=== PATIENT | male | born 1960 | race Caucasian/White ===

== ENCOUNTER → 2016-11-21 | Outpatient (CLI) | payer OTHER ==
[~2016-11-21] MED LIST: ASPI32ECTA PO; ATOR1TAB19 PO; CLOP75TA2 PO; LISI20TA PO; LISI40TAB PO; TYLE325T5 PO
--- NOTE | 2016-11-21 15:15 | REP ---
Right foot four views: There are no comparisons. Mineralization and joint spaces are normal. There is no fracture or dislocation. There are no unusual calcifications or foreign bodies. There is a density in the distal tibia of uncertain significance as it is not optimally demonstrated on these views of the foot, possibly an enchondroma or bone infarct. Impression: Negative right foot. Unusual density in the distal tibia not optimally demonstrated. Signed by Ralph Chung MD 11/21/2016 03:07 P
== END ==
LOC: M WUC 14:39
PROVIDERS: ATTEND Physician Assistant
DX: M79.671 Pain in right foot (principal)

== ENCOUNTER 2018-02-22 12:08 | Emergency (ER) | payer OTHER ==
[2018-02-22] MEDS: NS 1,000 ML IV (12:54)
[2018-02-22] MEDS: LORazepam 2 MG/ML VIAL (J2060) IV (12:54)
[2018-02-22] MEDS: ASPIRIN 81 MG CHEW TABLET PO (12:54)
[2018-02-22] MEDS: NITROGLYCERIN 0.4 MG SUBL TABLET SL (12:55)
[2018-02-22 13:10] LABS: PROTHROMBIN TIME 13.3 SECONDS (12.1-14.4)
[2018-02-22 13:30] LABS: ALBUMIN 4.2 GM/DL (3.2-5.2); ALKALINE PHOSPHATASE 86 U/L (45-117); ALT/SGPT 26 U/L (12-78); ANION GAP 11 MEQ/L (8-16); AST/SGOT 18 U/L (7-37); BILIRUBIN,DIRECT 0.3 MG/DL (0.0-0.2); BLOOD UREA NITROGEN 7 MG/DL (7-18); CARBON DIOXIDE LEVEL 23 MEQ/L (21-32); CHLORIDE LEVEL 97 MEQ/L (98-107); CPK CREATINE PHOSPHOKINASE 109 U/L (39-308); CREATININE FOR GFR 0.89 MG/DL (0.70-1.30); GLOMERULAR FILTRATION RATE > 60.0 (>56); GLUCOSE, FASTING 110 MG/DL (70-100); MB/CK RELATIVE INDEX 2.94 (< OR =4); NT-PRO BNP 74 PG/ML (<125); POTASSIUM SERUM 3.7 MEQ/L (3.5-5.1); SODIUM LEVEL 131 MEQ/L (136-145); TOTAL PROTEIN 7.3 GM/DL (6.4-8.2); TROPONIN I < 0.02 NG/ML (< 0.10)
[2018-02-22 13:35] LABS: ALBUMIN/GLOBULIN RATIO 1.35 (1.00-1.93)
[2018-02-22 14:17] LABS: BASO # 0.1 10^3/uL (0.0-0.2); BASO % 0.7 % (0.0-1.0); EOS # 0.4 10^3/uL (0.0-0.50); HEMATOCRIT 43.8 % (42.0-52.0); HEMOGLOBIN 15.9 g/dl (13.5-17.5); IMMATURE GRANULOCYTE % 0.4 % (0-3.0); LYMPH # 2.1 10^3/uL (1.5-4.5); LYMPH % 22.8 % (24.0-44.0); MEAN CORPUSCULAR HEMOGLOBIN 32.6 pg (27.0-33.0); MEAN CORPUSCULAR HGB CONC 36.3 g/dl (32.0-36.5); MEAN CORPUSCULAR VOLUME 89.9 fl (80.0-96.0); MONO # 1.1 10^3/uL (0.0-0.8); MONO % 11.7 % (0.0-5.0); NEUTROPHILS # 5.6 10^3/uL (1.8-7.7); NEUTROPHILS % 60.4 % (36.0-66.0); PLATELET COUNT, AUTOMATED 251 10^3/uL (150-450); RED BLOOD COUNT 4.87 10^6/uL (4.30-6.10); RED CELL DISTRIBUTION WIDTH 12.4 % (11.5-14.5); WHITE BLOOD COUNT 9.2 10^3/uL (4.0-10.0)
== END 2018-02-22 15:10 | disposition home or self-care (01) ==
LOC: M ED 12:08
DX: I10 Essential (primary) hypertension (principal); F41.9 Anxiety disorder, unspecified; E78.5 Hyperlipidemia, unspecified; Z86.73 Personal history of transient ischemic attack (TIA), and cerebral infarction without residual deficits; Z79.899 Other long term (current) drug therapy; Z79.82 Long term (current) use of aspirin; Z79.02 Long term (current) use of antithrombotics/antiplatelets
CPT/HCPCS: J2060

== ENCOUNTER 2018-07-19 10:52 | Emergency (ER) | payer OTHER ==
[~2018-07-19] VITALS: Ht 172.7 cm; Wt 86.4 kg
[~2018-07-19 10:52] MED LIST changes: +ASPI325T25 PO; -ASPI32ECTA PO
[2018-07-19] MEDS ORDERED: METO1TAB32 (11:09)
--- NOTE | 2018-07-19 11:51 | REP ---
RIGHT ANKLE, FOUR VIEWS: HISTORY: Pain. There is no acute fracture or dislocation. The joint space is normal in appearance. A small ossified density is present in the distal tibia. IMPRESSION: There is no acute fracture or dislocation. Electronically Signed by Crispin Fuentes MD 07/19/2018 11:54 A
--- NOTE | 2018-07-19 12:04 | REP ---
Duplex extremity venous ultrasound: Right lower extremity. History: Right lower extremity swelling and pain. Question DVT. Findings: The deep veins are anechoic and fully compressible from the groin to the popliteal fossa in the right lower extremity. Color flow imaging is homogeneous. Spectral Doppler interrogation demonstrates intact respiratory variation in flow and normal manual augmentation of flow. There is no evidence of deep vein thrombosis. Impression: Negative right lower extremity duplex venous ultrasound. No evidence of deep vein thrombosis. Electronically Signed by Griffin Norman MD 07/19/2018 11:55 A
[2018-07-19 12:21] VITALS: BP 137/83
== END 2018-07-19 12:45 | disposition home or self-care (01) ==
LOC: M ED 10:52
DX: S93.401A Sprain of unspecified ligament of right ankle, initial encounter (principal); I10 Essential (primary) hypertension; E78.2 Mixed hyperlipidemia; Z87.891 Personal history of nicotine dependence

== ENCOUNTER → 2020-05-11 | Outpatient (CLI) | payer OTHER ==
[~2020-05-11] MED LIST changes: +ASPI-255 PO; -ASPI325T25 PO; -LISI20TA PO; +LISI20TA35 PO; +LISI40TA52 PO; -LISI40TAB PO; +METO1TAB32
== END ==
LOC: M LABSMTC 12:00
PROVIDERS: ATTEND Anesthesiology
DX: Z01.812 Encounter for preprocedural laboratory examination (principal); Z20.828 Contact with and (suspected) exposure to other viral communicable diseases

== ENCOUNTER → 2020-06-10 | Outpatient (CLI) | payer OTHER | LOC: M LABSMTC 13:00 | PROVIDERS: ATTEND Anesthesiology | DX: Z01.812 Encounter for preprocedural laboratory examination (principal); Z20.828 Contact with and (suspected) exposure to other viral communicable diseases ==

== ENCOUNTER 2020-06-12 09:03 | Day surgery (SDC) | payer OTHER ==
[~2020-06-12] VITALS: Ht 175.3 cm; Wt 88.9 kg
[~2020-06-12 09:03] MED LIST changes: +LIDOCAINE 2% 100MG/5ML SDV (FOR ANES.) As Ordered ONE; +NS 1,000 ML IV ONE; +propofoL 200 MG/20 ML VIAL As Ordered ONE
[2020-06-12] MEDS ORDERED: propofoL 200 MG/20 ML VIAL As Ordered ONE (10:54)
[2020-06-12] MEDS ORDERED: LIDOCAINE 2% 100MG/5ML SDV (FOR ANES.) As Ordered ONE (10:54)
--- NOTE | 2020-06-12 11:12 | ROOR ---
Patient Name: Ralph Valencia Procedure Date: 06/12/2020 10:26 AM Date of : 1960 Age: 59 Room: [facility] Gender: Male Note Status: Finalized Procedure: Colonoscopy Indications: High risk colon cancer surveillance: Personal history of colonic polyps Providers: Rodolfo Naranjo Jr, MD Referring MD: ANGELICA FLOWER MD Requesting Provider: Medicines: Propofol per Anesthesia Complications: No immediate complications. Procedure: Pre-Anesthesia Assessment: - Prior to the procedure, a History and Physical was performed, and patient medications and allergies were reviewed. The patient is competent. The risks and benefits of the procedure and the sedation options and risks were discussed with the patient. All questions were answered and informed consent was obtained. Patient identification and proposed procedure were verified by the physician and the nurse in the pre-procedure area and in the procedure room. Mental Status Examination: alert and oriented. Airway Examination: normal oropharyngeal airway and neck mobility. Respiratory Examination: clear to auscultation. CV Examination: normal. ASA Grade Assessment: II - A patient with mild systemic disease. After reviewing the risks and benefits, the patient was deemed in satisfactory condition to undergo the procedure. The anesthesia plan was to use moderate sedation / analgesia (conscious sedation). Immediately prior to administration of medications, the patient was re-assessed for adequacy to receive sedatives. The heart rate, respiratory rate, oxygen saturations, blood pressure, adequacy of pulmonary ventilation, and response to care were monitored throughout the procedure. The physical status of the patient was re-assessed after the procedure. The Colonoscope was introduced through the anus and advanced to the cecum, identified by appendiceal orifice and ileocecal valve. The colonoscopy was performed without difficulty. The patient tolerated the procedure well. The quality of the bowel preparation was adequate. Findings: The rectum, recto-sigmoid colon, descending colon, ascending colon, cecum, appendiceal orifice and ileocecal valve appeared normal. A few medium-mouthed diverticula were found in the sigmoid colon. A small polyp was found in the transverse colon. The polyp was removed with a cold snare. Resection and retrieval were complete. To close a defect after polypectomy, one hemostatic clip was successfully placed. There was no bleeding at the end of the procedure. The ileocecal valve was severely lipomatous. Impression: - The rectum, recto-sigmoid colon, descending colon, ascending colon, cecum, appendiceal orifice and ileocecal valve are normal. - Diverticulosis in the sigmoid colon. - One small polyp in the transverse colon, removed with a cold snare. Resected and retrieved. Clip was placed. Recommendation: - Discharge patient to home (ambulatory). - Repeat colonoscopy in 5-10 years for surveillance based on pathology results. Procedure Code(s): --- Professional --- 32237, Colonoscopy, flexible; with removal of tumor(s), polyp(s), or other lesion(s) by snare technique Diagnosis Code(s): --- Professional --- Z86.010, Personal history of colonic polyps K63.5, Polyp of colon K57.30, Diverticulosis of large intestine without perforation or abscess without bleeding CPT copyright 2019 [employer]. All rights reserved. The codes documented in this report are preliminary and upon phonograph cartridge assembler review may be revised to meet current compliance requirements. Rodolfo Naranjo MD Rodolfo Naranjo Jr, MD 06/12/2020 11:12:25 AM Electronically signed by Rodolfo Naranjo Jr, MD Number of Addenda: 0 Note Initiated On: 06/12/2020 10:26 AM Estimated Blood Loss: Estimated blood loss: none.
[2020-06-12 11:51] VITALS: BP 135/83
== END 2020-06-12 11:54 | disposition home or self-care (01) ==
LOC: M OPP 09:03
PROVIDERS: ATTEND Surgery
DX: Z12.11 Encounter for screening for malignant neoplasm of colon (principal); Z86.010 Personal history of colon polyps; K63.5 Polyp of colon; K57.30 Diverticulosis of large intestine without perforation or abscess without bleeding

== ENCOUNTER → 2021-09-11 | Outpatient (CLI) | payer OTHER ==
[~2021-09-11] MED LIST changes: -LIDOCAINE 2% 100MG/5ML SDV (FOR ANES.) As Ordered ONE; -NS 1,000 ML IV ONE; -propofoL 200 MG/20 ML VIAL As Ordered ONE
[2021-09-11 16:22] LABS: BLOOD UREA NITROGEN 12 MG/DL (7-18); CREATININE FOR GFR 0.96 MG/DL (0.70-1.30); GLOMERULAR FILTRATION RATE > 60.0 (>49)
== END ==
LOC: M WUC 13:53
PROVIDERS: ATTEND Psychiatry & Neurology Neurology
DX: I10 Essential (primary) hypertension (principal)

== ENCOUNTER → 2023-01-21 | Outpatient (CLI) | payer OTHER ==
[2023-01-21 13:32] LABS: BASO # 0.1 10^3/uL (0.0-0.2); BASO % 0.7 % (0.0-1.0); EOS # 0.3 10^3/uL (0.0-0.5); EOS % 2.7 % (0.0-3.0); HEMATOCRIT 48.4 % (42.0-52.0); HEMOGLOBIN 16.7 g/dl (13.5-17.5); LYMPH # 1.7 10^3/uL (1.5-5.0); LYMPH % 16.7 % (24.0-44.0); MEAN CORPUSCULAR HEMOGLOBIN 31.9 pg (27.0-33.0); MEAN CORPUSCULAR HGB CONC 34.5 g/dl (32.0-36.5); MEAN CORPUSCULAR VOLUME 92.4 fl (80.0-96.0); MONO # 1.2 10^3/uL (0.0-0.8); MONO % 11.4 % (2.0-8.0); NEUTROPHILS # 6.9 10^3/uL (1.5-8.5); NEUTROPHILS % 68.1 % (36.0-66.0); PLATELET COUNT, AUTOMATED 261 10^3/uL (150-450); RED BLOOD COUNT 5.24 10^6/uL (4.30-6.10); WHITE BLOOD COUNT 10.2 10^3/uL (4.0-10.0)
[2023-01-21 13:53] LABS: ERYTHROCYTE SEDIMENTATION RATE 26 mm/hr (0-20)
== END ==
LOC: M PLALAB 11:57
PROVIDERS: ATTEND Physician Assistant
DX: M25.561 Pain in right knee (principal)

== ENCOUNTER → 2023-05-14 | Outpatient (CLI) | payer OTHER ==
[2023-05-14 13:37] LABS: BASO # 0.1 10^3/uL (0.0-0.2); BASO % 0.8 % (0.0-1.0); EOS # 0.4 10^3/uL (0.0-0.5); EOS % 2.9 % (0.0-3.0); HEMATOCRIT 48.7 % (42.0-52.0); LYMPH # 1.8 10^3/uL (1.5-5.0); MEAN CORPUSCULAR HEMOGLOBIN 32.9 pg (27.0-33.0); MEAN CORPUSCULAR HGB CONC 34.9 g/dl (32.0-36.5); MEAN CORPUSCULAR VOLUME 94.2 fl (80.0-96.0); MONO # 1.3 10^3/uL (0.0-0.8); MONO % 10.4 % (2.0-8.0); NEUTROPHILS # 8.4 10^3/uL (1.5-8.5); NEUTROPHILS % 70.1 % (36.0-66.0); PLATELET COUNT, AUTOMATED 294 10^3/uL (150-450); RED BLOOD COUNT 5.17 10^6/uL (4.30-6.10)
[2023-05-14 13:48] LABS: ERYTHROCYTE SEDIMENTATION RATE 19 mm/hr (0-20)
[2023-05-14 13:57] LABS: RHEUMATOID FACTOR QUANT < 3.5 IU/ML (<14)
[2023-05-15 13:07] LABS: ANTINUCLEAR ANTIBODIES DIRECT Negative (Negative)
== END ==
LOC: M PLALAB 11:13
PROVIDERS: ATTEND Physician Assistant Surgical
DX: M17.12 Unilateral primary osteoarthritis, left knee (principal)

== ENCOUNTER → 2023-06-17 | Outpatient (CLI) | payer OTHER | LOC: M PLARAD 13:13 | PROVIDERS: ATTEND Physician Assistant Surgical | DX: M17.12 Unilateral primary osteoarthritis, left knee (principal); M25.462 Effusion, left knee; S83.242A Other tear of medial meniscus, current injury, left knee, initial encounter; X58.XXXA Exposure to other specified factors, initial encounter; Y92.9 Unspecified place or not applicable; Y93.9 Activity, unspecified; Y99.9 Unspecified external cause status; M65.862 Other synovitis and tenosynovitis, left lower leg ==

== ENCOUNTER 2024-03-11 12:58 | Observation (INO) | payer OTHER ==
[~2024-03-11] VITALS: Ht 177.8 cm; Wt 85.0 kg
[~2024-03-11 12:58] MED LIST changes: +ASPIRIN 81MG CHEW TABLET PO SCH; +ATORVASTATIN 20 MG TAB PO SCH; +CLOPIDOGREL 75 MG TAB PO SCH; -METO1TAB32; +METO1TAB32 PO
[2024-03-11] MEDS ORDERED: ASPI81CH33 PO (13:11)
[2024-03-11] MEDS ORDERED: ISOVUE-370 76% 100ML VIAL As Ordered ONE (13:16)
[2024-03-11 13:46] LABS: BASO # 0.1 10^3/uL (0.0-0.2); EOS # 0.4 10^3/uL (0.0-0.5); EOS % 4.2 % (0.0-3.0); HEMATOCRIT 47.8 % (42.0-52.0); HEMOGLOBIN 17.2 g/dl (13.5-17.5); LYMPH % 19.6 % (24.0-44.0); MEAN CORPUSCULAR VOLUME 91.6 fl (80.0-96.0); MONO # 0.9 10^3/uL (0.0-0.8); MONO % 9.3 % (2.0-8.0); NEUTROPHILS # 6.6 10^3/uL (1.5-8.5); NEUTROPHILS % 65.4 % (36.0-66.0); PLATELET COUNT, AUTOMATED 289 10^3/uL (150-450); RED BLOOD COUNT 5.22 10^6/uL (4.30-6.10); WHITE BLOOD COUNT 10.1 10^3/uL (4.0-10.0)
[2024-03-11] MEDS ORDERED: ATOR1TAB21 PO (13:46)
[2024-03-11] MEDS ORDERED: ZEST1TAB2 PO (13:46)
[2024-03-11] MEDS ORDERED: HOME MED LIST COMPLETE! XX SCH (13:50)
[2024-03-11 13:58] LABS: INR 0.99; PARTIAL THROMBOPLASTIN TIME 25.4 SECONDS (24.8-34.2); PROTHROMBIN TIME 12.8 SECONDS (12.5-14.5)
[2024-03-11 15:19] LABS: BLOOD UREA NITROGEN 9 MG/DL (9-23); CALCIUM LEVEL 9.5 MG/DL (8.3-10.6); CARBON DIOXIDE LEVEL 23 MMOL/L (20-31); CHLORIDE LEVEL 103 MMOL/L (98-107); CREATININE FOR GFR 0.83 MG/DL (0.70-1.30); GLOMERULAR FILTRATION RATE > 60.0 (>49); GLUCOSE, FASTING 99 MG/DL (74-106); POTASSIUM SERUM 4.1 MMOL/L (3.5-5.1); SODIUM LEVEL 134 MMOL/L (136-145)
[2024-03-11] MEDS ORDERED: ACETAMINOPHEN TAB 650MG DOSE (2X325MG) PO PRN (16:50)
[2024-03-11 17:22] LABS: CHOLESTEROL LEVEL 146 MG/DL (<200); TRIGLYCERIDES LEVEL 54 MG/DL (<150)
[2024-03-11 17:25] LABS: THYROID STIMULATING HORMONE 1.438 uIU/ML (0.55-4.78)
[2024-03-11 17:34] LABS: HEMOGLOBIN A1c 5.6 % (4.0-6.0)
[2024-03-11 17:48] LABS: VITAMIN B12 LEVEL 327 PG/ML (211-911)
[2024-03-11 18:16] LABS: CHOLESTEROL RISK RATIO 1.99 (<5); HDL CHOLESTEROL 73.3 MG/DL (>40); LDL CHOLESTEROL 61.9 MG/DL (<100); NON-HDL-C 72.7 MG/DL
[2024-03-11 22:00] VITALS: BP 140/80; TEMP 97.5; O2SAT 96
[2024-03-11 23:53] VITALS: BP 122/70; TEMP 98; O2SAT 96
[2024-03-12] VITALS (9 sets, daily range): BP systolic 117–128; BP diastolic 72–75; TEMP 97.6; O2SAT 92–96
[2024-03-12 07:16] LABS: BASO # 0.1 10^3/uL (0.0-0.2); BASO % 1.1 % (0.0-1.0); EOS # 0.5 10^3/uL (0.0-0.5); EOS % 5.2 % (0.0-3.0); HEMATOCRIT 43.4 % (42.0-52.0); HEMOGLOBIN 15.6 g/dl (13.5-17.5); LYMPH # 1.7 10^3/uL (1.5-5.0); MEAN CORPUSCULAR HEMOGLOBIN 33.4 pg (27.0-33.0); MEAN CORPUSCULAR HGB CONC 35.9 g/dl (32.0-36.5); MEAN CORPUSCULAR VOLUME 92.9 fl (80.0-96.0); MONO % 11.1 % (2.0-8.0); NEUTROPHILS # 5.6 10^3/uL (1.5-8.5); NEUTROPHILS % 62.9 % (36.0-66.0); PLATELET COUNT, AUTOMATED 254 10^3/uL (150-450); RED BLOOD COUNT 4.67 10^6/uL (4.30-6.10); WHITE BLOOD COUNT 8.9 10^3/uL (4.0-10.0)
[2024-03-12 07:48] LABS: ALBUMIN 3.5 G/DL (3.2-5.2); ALKALINE PHOSPHATASE 105 U/L (46-116); ALT/SGPT 18 U/L (7.0-40); AST/SGOT 14 U/L (<34); BILIRUBIN,TOTAL 0.9 MG/DL (0.3-1.2); BLOOD UREA NITROGEN 12 MG/DL (9-23); CALCIUM LEVEL 9.1 MG/DL (8.3-10.6); CARBON DIOXIDE LEVEL 26 MMOL/L (20-31); CHLORIDE LEVEL 104 MMOL/L (98-107); GLOMERULAR FILTRATION RATE > 60.0 (>49); GLUCOSE, FASTING 98 MG/DL (74-106); MAGNESIUM LEVEL 2.2 MG/DL (1.8-2.4); POTASSIUM SERUM 4.1 MMOL/L (3.5-5.1); SODIUM LEVEL 135 MMOL/L (136-145); TOTAL PROTEIN 6.4 G/DL (5.7-8.2)
[2024-03-12] MEDS: ENOXAPARIN 40MG/0.4ML SYRINGE (J1650 PER 10MG) SC SCH (08:26)
[2024-03-12] MEDS: CLOPIDOGREL 75 MG TAB PO SCH (08:26)
[2024-03-12] MEDS: ASPIRIN 81MG CHEW TABLET PO SCH (08:26)
[2024-03-12] MEDS: ATORVASTATIN 20 MG TAB PO SCH (08:26)
[2024-03-12] MEDS ORDERED: LIPI80TA PO (11:55)
[2024-03-12 12:13] LABS: CHOLESTEROL LEVEL 135 MG/DL (<200); CHOLESTEROL RISK RATIO 1.99 (<5); HDL CHOLESTEROL 67.7 MG/DL (>40); LDL CHOLESTEROL 54.5 MG/DL (<100); NON-HDL-C 67.3 MG/DL; TRIGLYCERIDES LEVEL 64 MG/DL (<150)
== END 2024-03-12 13:16 | disposition home or self-care (01) ==
LOC: M ED 12:58 → M ED INP 12:59 → M PCU 21:55
PROVIDERS: ADMIT Student in an Organized Health Care Education/Training Program; ATTEND Student in an Organized Health Care Education/Training Program
DX: G45.9 Transient cerebral ischemic attack, unspecified (principal); I72.0 Aneurysm of carotid artery; I69.320 Aphasia following cerebral infarction; I10 Essential (primary) hypertension; Z87.891 Personal history of nicotine dependence; Z79.82 Long term (current) use of aspirin; Z79.02 Long term (current) use of antithrombotics/antiplatelets; Z79.899 Other long term (current) drug therapy
CPT/HCPCS: 36415; 70450; 70496; 70498; 70544; 70551; 71045; 80048; 80053; 80061; 82607; 82746; 83036; 83735; 84207; 84425; 84443; 85025; 85610; 85730; 93005; 93041; 93306; 94760; 96372; 97161; 99285; J1650; Q9967

== ENCOUNTER → 2024-05-26 | Outpatient (CLI) | payer OTHER ==
[~2024-05-26] MED LIST changes: +ASPI81CH33 PO; -ASPIRIN 81MG CHEW TABLET PO SCH; +ATOR-398 PO; +ATOR1TAB21 PO; -ATORVASTATIN 20 MG TAB PO SCH; -CLOPIDOGREL 75 MG TAB PO SCH; +ZEST1TAB2 PO
== END ==
LOC: M RAD 08:56
PROVIDERS: ATTEND Orthopaedic Surgery
DX: M54.12 Radiculopathy, cervical region (principal); M47.892 Other spondylosis, cervical region

== ENCOUNTER → 2024-08-24 | Outpatient (REF) | payer OTHER ==
[2024-08-24 16:17] LABS: APPEARANCE, URINE CLEAR (CLEAR); BACTERIA, URINE AUTO NEGATIVE (NEGATIVE); BILIRUBIN, URINE AUTO NEGATIVE (NEGATIVE); BLOOD, URINE BLOOD 1+ (NEGATIVE); COLOR, URINE YELLOW (YELLOW); GLUCOSE, URINE (UA) AUTO NEGATIVE (NEGATIVE); KETONE, URINE AUTO NEGATIVE (NEGATIVE); LEUKOCYTE ESTERASE, URINE AUTO NEGATIVE (NEGATIVE); NITRITE, URINE AUTO NEGATIVE (NEGATIVE); PROTEIN, URINE AUTO NEGATIVE (NEGATIVE); RBC, URINE AUTO 2 /HPF (0-3); SPECIFIC GRAVITY URINE AUTO 1.015 (1.002-1.035); SQUAMOUS EPITHELIAL CELL UR AU 1 /HPF (0-6); WBC, URINE AUTO 0 /HPF (0-3)
[2024-08-24 16:22] LABS: COMPLEMENT C3 149.2 MG/DL (90.0-170.0); COMPLEMENT C4 44.2 MG/DL (12-36)
[2024-08-24 16:23] LABS: ALBUMIN 4.1 G/DL (3.2-5.2); ALKALINE PHOSPHATASE 90 U/L (40-129); ALT/SGPT 27 U/L (7.0-40); AST/SGOT 21 U/L (<34); BILIRUBIN,TOTAL 0.7 MG/DL (0.3-1.2); BLOOD UREA NITROGEN 11 MG/DL (9-23); C REACTIVE PROTEIN QUANTITATIV < 0.50 MG/DL (<1.0); CALCIUM LEVEL 9.7 MG/DL (8.3-10.6); CARBON DIOXIDE LEVEL 28 MMOL/L (20-31); CHLORIDE LEVEL 102 MMOL/L (98-107); CREATININE FOR GFR 0.85 MG/DL (0.70-1.30); GLOMERULAR FILTRATION RATE > 60.0 (>49); GLUCOSE, FASTING 101 MG/DL (74-106); POTASSIUM SERUM 4.7 MMOL/L (3.5-5.1); SODIUM LEVEL 139 MMOL/L (136-145); TOTAL PROTEIN 7.2 G/DL (5.7-8.2)
[2024-08-24 16:31] LABS: BASO # 0.1 10^3/uL (0.0-0.2); EOS # 0.6 10^3/uL (0.0-0.5); HEMATOCRIT 46.7 % (42.0-52.0); HEMOGLOBIN 16.4 g/dl (13.5-17.5); LYMPH # 1.3 10^3/uL (1.5-5.0); MEAN CORPUSCULAR HEMOGLOBIN 32.7 pg (27.0-33.0); MEAN CORPUSCULAR HGB CONC 35.1 g/dl (32.0-36.5); MONO # 0.9 10^3/uL (0.0-0.8); MONO % 10.3 % (2.0-8.0); NEUTROPHILS # 5.4 10^3/uL (1.5-8.5); NEUTROPHILS % 65.5 % (36.0-66.0); PLATELET COUNT, AUTOMATED 286 10^3/uL (150-450); RED BLOOD COUNT 5.02 10^6/uL (4.30-6.10); WHITE BLOOD COUNT 8.3 10^3/uL (4.0-10.0)
[2024-08-24 16:36] LABS: ERYTHROCYTE SEDIMENTATION RATE 7 mm/hr (0-20)
[2024-08-24 16:39] LABS: TOTAL PROTEIN,RANDOM URINE 12.9 MG/DL (0.0-14.0)
[2024-08-24 16:45] LABS: CREATININE,RANDOM URINE 130.7 MG/DL
== END ==
LOC: M SFHCRHEU 09:57
PROVIDERS: ATTEND Internal Medicine Rheumatology
DX: M25.50 Pain in unspecified joint (principal); R76.8 Other specified abnormal immunological findings in serum; M54.59 Other low back pain; R53.83 Other fatigue